=== PATIENT | female | born 1985 | race Two or more races ===

== ENCOUNTER 2019-07-29 17:30 | Emergency (ER) | payer BC, MEDICAID ==
[~2019-07-29] VITALS: Ht 160 cm; Wt 96.2 kg
[2019-07-29 17:39] VITALS: BP 138/102
== END 2019-07-29 20:55 | disposition left against medical advice (07) ==
LOC: ER 17:36
DX: J02.9 Acute pharyngitis, unspecified (principal); H92.03 Otalgia, bilateral; Z53.21 Procedure and treatment not carried out due to patient leaving prior to being seen by health care provider

== ENCOUNTER 2020-06-17 19:18 | Emergency (ER) | payer BC, MEDICAID ==
[~2020-06-17] VITALS: Ht 160 cm; Wt 89.8 kg
[2020-06-17 19:35] VITALS: BP 137/95
== END 2020-06-18 05:36 | disposition left against medical advice (07) ==
LOC: ER 19:18
DX: I10 Essential (primary) hypertension (principal); R06.02 Shortness of breath; R07.89 Other chest pain; E11.9 Type 2 diabetes mellitus without complications; R42 Dizziness and giddiness